=== PATIENT | female | born 1955 | race Caucasian/White ===

== ENCOUNTER → 2019-03-14 09:59 | Outpatient (CLI) | payer BC, SELFPAY ==
--- NOTE | 2019-03-14 10:14 | XR_ITS ---
PROCEDURE: XR DEXA AXIAL SKELETON CLINICAL HISTORY: OSTEOPENIA COMPARISON: No exams were available for comparison FINDINGS: L1-L4 density is 1.153 grams/centimeters sq with a T-score of -0.2. Lowest density in the hip is in the left femoral neck at 0.870 grams/centimeters sq with a T-score -1.2 consistent with osteopenia IMPRESSION: Osteopenia. Moderate fracture risk. Treatment advised. Suggest follow-up exam March 2021 Dictated by: Nathen Corona MD 03/14/2019 15:49 Electronically signed by Nathen Corona MD in [place] 03/14/2019 15:49
--- NOTE | 2019-03-14 10:14 | MM_ITS ---
PROCEDURE: MM DIG SCREENING MAMM BI W/CAD CLINICAL INDICATION: SCREENING There is no personal or family history of breast cancer. COMPARISON: [facility] DIG MAMM-SCREEN [facility] from 05/19/2013 [facility] DIG MAMM-SCREEN [facility] from 08/22/2014 [facility] DIG MAMM-SCREEN [facility] W/CAD from 07/29/2016 TECHNIQUE: Standard CC and MLO images were obtained. R2 CAD reviewed. FINDINGS: Prominent diffuse heterogenic fibroglandular densities are seen in both breast primarily upper outer quadrants. There is a mole marker on each breast. There is no suspicious lesion in either breast and no suspicious microcalcifications. IMPRESSION: Stable diffusely dense parenchymal pattern with no suspicious lesions seen BI-RAD Category: 2 Benign Finding(s) FOLLOW-UP: 1YR 1 Year Follow-up (A letter has been sent to the patient regarding results of the study.) Dictated by: Dr. Ron Rios MD 03/16/2019 11:[address] Ron Rios MD in [place] 03/16/2019 11:10
== END ==
PROVIDERS: PCP Nurse Practitioner Family; Visit Provider Nurse Practitioner Family
DX: Z12.31 Encounter for screening mammogram for malignant neoplasm of breast (principal); M85.89 Other specified disorders of bone density and structure, multiple sites
CPT/HCPCS: 77067; 77080